=== PATIENT | male | born 1970 | race Caucasian/White ===

== ENCOUNTER 2019-12-18 13:44 | Emergency (ER) | payer OTHER ==
[2019-12-18 14:45] VITALS: BP 115/76; PULSE 57; TEMP 98.2; BMI 25.8
[2019-12-18] MEDS ORDERED: IBUPROFEN 600 MG TABLET (FP) PO ONE ×2 (15:07→16:13)
[2019-12-18] MEDS ORDERED: DIPHTH,PERTUSS(ACELL),TET 0.5 ML DISP.SYRIN IM ONE ×2 (15:07→16:13)
--- NOTE | 2019-12-18 15:14 | PDOC ---
History of Present Illness - General Chief Complaint: Injury Stated Complaint: RIGHT ARM INJURY Time Seen by Provider: 12/18/19 13:59 History Source: Patient Exam Limitations: No Limitations - History of Present Illness Initial Comments: 49 yo M hx cervical spinal stenosis presents with R elbow and hand pain as well as L neck strain s/p fall just [employer]. Fall was mechanical. He states that his neck was not hurting right away, but it became sore afterwards. Denies any other injuries. He sustained an abrasion to his R hand. He presents mainly because he is traveling this week and wants to be sure he is safe to travel. Denies any weakness, numbness. Past History - Past Medical History Allergies/Adverse Reactions: Allergies Allergy/AdvReac Type Severity Reaction Status Date / Time No Known Allergies Allergy Unverified 12/18/19 13:45 Home Medications: Ambulatory Orders Cefadroxil 500 mg PO BID 12/18/19 Fluticasone Prop 0.05% Nasal [Flonase -] 1 - 2 spray NS BID 12/18/19 Methocarbamol [Robaxin -] 500 mg PO BID PRN #14 tablet 12/18/19 Polymyxin B Sulf/Trimethoprim [Polymyxin B-Tmp Eye Drops] 10 ml OP BID 12/18/19 COPD: No - Psycho Social/Smoking Cessation Hx Smoking History: Never smoked Hx Alcohol Use: No Drug/Substance Use Hx: No Review of Systems - Review of Systems Able to Perform ROS?: Yes Comments:: GENERAL/CONSTITUTIONAL: No fever or chills. No weakness. HEAD, EYES, EARS, NOSE AND THROAT: No change in vision. No ear pain or discharge. No sore throat. MUSCULOSKELETAL: +R forearm and hand pain. +L neck soreness. No back pain. SKIN: No rash. NEUROLOGIC: No headache, vertigo, loss of consciousness, or change in strength/ sensation. *Physical Exam - Vital Signs Last Vital Signs Temp Pulse Resp BP Pulse Ox 98.2 F 57 L 16 115/76 97 12/18/19 13:45 12/18/19 13:45 12/18/19 13:45 12/18/19 13:45 12/18/19 13:45 - Physical Exam GENERAL: Awake, alert, and fully oriented, in no acute distress HEAD: No signs of trauma NECK: Normal ROM, supple, no lymphadenopathy, JVD, or masses. +Paraspinal soft tissue tenderness to L neck. No midline tenderness. EXTREMITIES: R hand with tenderness over 5th metacarpal. +Tenderness over R forearm over the ulna. +Abrasions. No active bleeding. Remainder of extremities with normal range of motion, no edema. No clubbing or cyanosis. No cords, erythema, or tenderness NEUROLOGICAL: Cranial nerves II through XII grossly intact. Normal speech, normal gait. Motor and sensation intact SKIN: Warm, dry, normal turgor. Abrasions to R hand and forearm Medical Decision Making - Medical Decision Making 12/18/19 15:18 Pt with abrasions- will give tdap, as he is uncertain of his last booster. Will give NSAID. XR r/o fracture. DC home with NSAID for hand and muscle relaxer for neck. Discharge - Discharge Information Problems reviewed: Yes Clinical Impression/Diagnosis: Contusion Qualifiers: Encounter type: initial encounter Contusion area: forearm Laterality: right Qualified Code(s): S50.11XA - Contusion of right forearm, initial encounter Cervical strain Qualifiers: Encounter type: initial encounter Qualified Code(s): S16.1XXA - Strain of muscle, fascia and tendon at neck level, initial encounter Condition: Stable Disposition: HOME - Admission No - Additional Discharge Information Prescriptions: Methocarbamol [Robaxin -] 500 mg PO BID PRN #14 tablet PRN Reason: Muscle Spasms - Follow up/Referral Referrals: Juan Carlos Valdes [Primary Care Provider] - - Patient Discharge Instructions Patient Printed Discharge Instructions: Whiplash, DI for Contusion - Post Discharge Activity
== END 2019-12-18 16:26 | disposition home or self-care (01) ==
LOC: FER 13:44
PROC: 3E0234Z Introduction of Serum, Toxoid and Vaccine into Muscle, Percutaneous Approach (ICD-10-PCS; principal; 2019-12-18)
DX: S16.1XXA Strain of muscle, fascia and tendon at neck level, initial encounter (principal); X58.XXXA Exposure to other specified factors, initial encounter; Y93.89 Activity, other specified; Y92.89 Other specified places as the place of occurrence of the external cause
CPT/HCPCS: 73090-TC-RT-FY; 73110-TC-RT-FY; 73130-TC-RT-FY; 90715; 99281-25